=== PATIENT | male | born 1950 | race Hispanic/Latino ===

== ENCOUNTER 2023-09-13 08:20 | Day surgery (SDC) | payer MEDICARE ==
[2023-09-11 10:04] LABS: BASOPHILS # (AUTO) 0.02 K/uL (0.00-0.20); BASOPHILS % (AUTO) 0.4 % (0.0-5.0); EOSINOPHILS # (AUTO) 0.15 K/uL (0.00-0.70); EOSINOPHILS % (AUTO) 2.7 % (0.0-8.0); HEMATOCRIT 40.6 % (42-54); IMMATURE GRANULOCYTE ABSOLUTE 0.01 K/uL (0-1); LYMPHOCYTES # (AUTO) 1.9 K/uL (1.0-4.8); LYMPHOCYTES % (AUTO) 33.8 % (21.0-51.0); MEAN CORPUSCULAR HEMOGLOBIN 29.8 pg (27.0-33.0); MEAN CORPUSCULAR HGB CONC 33.5 g/dL (32.0-36.0); MEAN CORPUSCULAR VOLUME 88.8 fL (79-99); MONOCYTES # (AUTO) 0.6 K/uL (0.1-1.0); MONOCYTES % (AUTO) 10.2 % (3.0-13.0); NEUTROPHILS # (AUTO) 2.9 K/uL (1.8-7.7); NEUTROPHILS % (AUTO) 52.7 % (40.0-77.0); PLATELET COUNT (AUTO) 259 K/uL (130-400); RED BLOOD CELL COUNT(AUTO) 4.57 MIL/uL (4.50-6.20); RED CELL DISTRIBUTION WIDTH 12.7 % (11.0-15.5); WHITE BLOOD COUNT (AUTO) 5.5 K/uL (4.8-10.8)
[2023-09-11 10:07] VITALS: BP 123/61; PULSE 58; RESP 17
[2023-09-11 10:10] LABS: CREATININE 1.3 mg/dL (0.5-1.5); POTASSIUM 4.6 mmol/L (3.5-5.1)
[2023-09-11 10:17] LABS: INR 1.01 (0.85-1.15); PROTHROMBIN TIME 11.7 SEC (9.6-11.6)
[2023-09-11 10:18] LABS: APPEARANCE,URINE CLEAR (CLEAR); BILIRUBIN,URINE NEGATIVE (NEGATIVE); COLOR,URINE LIGHT-YELLOW (YELLOW); GLUCOSE, URINE (UA) NEGATIVE (NEGATIVE); KETONES,URINE NEGATIVE (NEGATIVE); LEUKOCYTE ESTERASE ,URINE NEGATIVE Leu/uL (NEGATIVE); NITRATE,URINE NEGATIVE (NEGATIVE); OCCULT BLOOD,URINE NEGATIVE (NEGATIVE); PH,URINE 6.5 (5.0-8.0); PROTEIN,URINE NEGATIVE (NEGATIVE)
[2023-09-11 10:19] LABS: PARTIAL THROMBOPLASTIN TIME 27.6 SEC (26.3-35.5)
[2023-09-11 11:11] LABS: B-TYPE NATRIURETIC PEPTIDE 33 pg/mL (0-100)
[2023-09-11 11:12] LABS: ADD UA MICROSCOPIC YES
[2023-09-11 11:18] LABS: MUCUS,URINE RARE LPF (None Seen); WBC,URINE 0-1 /HPF (0-1)
[2023-09-13] VITALS (12 sets, daily range): BP systolic 103–145; BP diastolic 60–77; PULSE 52–58; RESP 13–18
[~2023-09-13] VITALS: Ht 167.6 cm; Wt 77.7 kg
[~2023-09-13 08:20] MED LIST: ASPI-1443 PO; ATOR40TA71 PO; FENO145T26 PO; ISOS30TA92 PO; METO-391 PO; MULT-1367 PO; NITR0.4T50 SL; RUTI1TAB2 PO; VALS160T29 PO
[2023-09-13] MEDS: 0.9%NACL 1000ML 1,000 ML IV ONE (09:15)
[2023-09-13] MEDS ORDERED: IOHEXOL 350 MG/ML 100ML INFUS..BTL IV ONE (10:28)
[2023-09-13] MEDS ORDERED: NICARDIPINE 25MG INJ IV ONE (10:28)
[2023-09-13] MEDS ORDERED: HEPARIN 10,000 UNIT/10ML (1,000 UNIT/ML) VIAL ONE (10:28)
[2023-09-13] MEDS ORDERED: IOHEXOL-350 50ML VIAL IV ONE (10:28)
[2023-09-13] MEDS ORDERED: LIDOCAINE HCL 400MG/20ML VIAL ONE (10:28)
[2023-09-13] MEDS ORDERED: NITROGLYCERIN 50MG VIAL ONE (10:29)
[2023-09-13] MEDS ORDERED: MIDAZOLAM HCL 1 MG/ML 2ML VIAL ONE (10:45)
[2023-09-13] MEDS ORDERED: BIVALIRUDIN 250 MG/VIAL IV ONE (10:45)
[2023-09-13] MEDS ORDERED: FENTANYL CITRATE PF 50 MCG/1 ML 2ML VIAL ONE (10:45)
[2023-09-13] MEDS ORDERED: 0.9%NACL 1000ML 1,000 ML IV SCH (12:30)
== END 2023-09-13 16:45 | disposition home or self-care (01) ==
LOC: DAH 08:20
PROVIDERS: ATTEND Internal Medicine Cardiovascular Disease
DX: I25.112 Atherosclerotic heart disease of native coronary artery with refractory angina pectoris (principal); E78.2 Mixed hyperlipidemia; I12.9 Hypertensive chronic kidney disease with stage 1 through stage 4 chronic kidney disease, or unspecified chronic kidney disease; N18.30 Chronic kidney disease, stage 3 unspecified; Z79.82 Long term (current) use of aspirin; Z79.899 Other long term (current) drug therapy; Z98.890 Other specified postprocedural states; Z79.01 Long term (current) use of anticoagulants; Z95.1 Presence of aortocoronary bypass graft; Z82.49 Family history of ischemic heart disease and other diseases of the circulatory system
CPT/HCPCS: 80048; 83880; 85025; 85610; 85730; 81001; 36415; 71045; 93005; 93458; C1887; C1769; C1894 ×3; A4649; J3010; J3490 ×3; J7030; J1644 ×2; J2250; Q9967 ×2; A4215; A4222; A4221; A4663; A4216; A4606; Q9965 ×2; A4223 ×3; 96360; 96361; 99156; 99157; J0583